=== PATIENT | male | born 1960 | race Caucasian/White ===

== ENCOUNTER → 2020-08-13 | Outpatient (REF) | payer BC | LOC: M LABSMT 12:13 | PROVIDERS: ATTEND Urology | DX: Z85.47 Personal history of malignant neoplasm of testis (principal); N40.0 Benign prostatic hyperplasia without lower urinary tract symptoms ==

== ENCOUNTER → 2021-08-12 | Outpatient (CLI) | payer BC | LOC: M PLALAB 10:31 | PROVIDERS: ATTEND Urology | DX: Z12.5 Encounter for screening for malignant neoplasm of prostate (principal); Z85.47 Personal history of malignant neoplasm of testis | CPT/HCPCS: 36415; 82105; 83615; 84702; G0103 ==

== ENCOUNTER → 2022-08-18 | Outpatient (REF) | payer BC | LOC: M LABSMT 10:40 | PROVIDERS: ATTEND Urology | DX: Z53.9 Procedure and treatment not carried out, unspecified reason (principal) ==